=== PATIENT | female | born 1990 | race African-American/Black ===

== ENCOUNTER 2017-10-02 04:26 | Inpatient (IN) ==
[2017-10-02] MEDS ORDERED: LACTATED RINGERS 1,000 ML IV ONE (05:14)
[2017-10-02] MEDS ORDERED: FAMOTIDINE 20 MG/2 ML VIAL IV ONE (05:14)
[2017-10-02] MEDS ORDERED: ePHEDrine 50 MG/ML AMP IV PRN (05:14)
[2017-10-02] MEDS ORDERED: BUTORPHANOL 2 MG/ML VIAL IV PRN (05:14)
[2017-10-02] MEDS ORDERED: diphenhydrAMINE 50 MG/1 ML VIAL IV PRN (05:14)
[2017-10-02] MEDS ORDERED: PROMETHAZINE 25 MG/1 ML VIAL IM ONE (05:14)
[2017-10-02] MEDS ORDERED: CITRIC ACID/SODIUM CITRATE 30 ML UDCUP PO ONE (05:14)
[2017-10-02] MEDS ORDERED: ONDANSETRON 4 MG/2 ML VIAL IV PRN ×2 (05:14→15:55)
[2017-10-02] MEDS ORDERED: hydrOXYzine HCL 25 MG/1 ML VIAL IM PRN (05:14)
[2017-10-02] MEDS ORDERED: fentaNYL 2 MCG/ROPIV 0.2% EPID 150 ML EPIDURAL SCH (05:30)
[2017-10-02] MEDS ORDERED: LACTATED RINGERS 1,000 ML IV SCH (05:30)
[2017-10-02] MEDS ORDERED: OXYTOCIN/LR 20 UNIT/1,000 ML BAG IV SCH (05:30)
[2017-10-02 06:23] LABS: Basophils % 0.2 % (0.0-0.8); Eosinophils # 0.1 10*3/uL (0.0-0.87); Eosinophils % 1.2 % (0.00-10.9); Hematocrit 36.3 VOL% (35.7-47.0); Hemoglobin 12.5 GM/DL (12.0-16.0); Immature Granulocytes % 0.6 %; Immature Granulocytes Absolute 0.05 #; Lymphocytes # 2.2 10*3/uL (1.4-4.0); Lymphocytes % 26.8 % (21.3-54.2); Mean Corpuscular HGB Conc 34.4 GM/DL (32-36); Mean Corpuscular Hemoglobin 32 PG (27-34); Mean Corpuscular Volume 93.8 FL (87-102); Mean Platelet Volume 11.3 FL (9.6-12.0); Monocytes # 0.7 10*3/uL (0.11-0.8); Neutrophils # 5.1 10*3/uL (1.4-7.4); Neutrophils % 62.2 % (38.7-73.9); Platelet Count 305 T/CUMM (130-400); Red Blood Count 3.87 MC/CUMM (3.8-5.5); White Blood Count 8.3 T/CUMM (4-12)
[2017-10-02 06:52] LABS: Alanine Aminotransferase 25 U/L (13-56); Albumin 2.8 G/DL (3.4-5.0); Alkaline Phosphatase 151 U/L (45-117); Aspartate Amino Transferase 22 U/L (0-37); Bilirubin,Total < 0.39 MG/DL (0.2-1.0); Blood Urea Nitrogen 7 MG/DL (7-18); Calcium 9.1 MG/DL (8.5-10.1); Glucose 73 MG/DL (74-106); Osmolality,Calculated 273.5 MOS/KG (273-304); Potassium 3.7 MMOL/L (3.5-5.1); Sodium 139 MMOL/L (136-145); Total Protein 7.6 G/DL (6.4-8.3)
[2017-10-02 11:13] LABS: Apearance,Urine CLEAR (Clear); Bacteria,Urine Occasional /HPF (Few); Bilirubin,Urine Negative (Negative); Blood, Urine Negative (Negative); Glucose,Urine (UA) Negative (Negative); Ketones,Urine Negative (Negative); Mucus,Urine Occasional /LPF (Occasional); Nitrite,Urine Negative (Negative); Protein,Urine Negative; Urine Color Yellow (Yellow); Urine Specific Gravity 1.006 (1.001-1.035); Urine Urobilinogen < 2.0 EU/DL (0.2-1.0); WBC,Urine <1 /HPF (0-6)
[2017-10-02] MEDS ORDERED: LIDOCAINE 1% 50 ML VIAL ONE (15:41)
[2017-10-02] MEDS ORDERED: miSOPROStol 200 MCG TABLET ONE (15:41)
[2017-10-02] MEDS ORDERED: BISACODYL 10 MG SUPP RECTAL PRN (15:55)
[2017-10-02] MEDS ORDERED: BENZOCAINE 20%/MENTHOL 0.5% SPRAY 56 GM CAN TOP PRN (15:55)
[2017-10-02] MEDS ORDERED: DIPH/TET/ACEL PERT BOOSTER VACCINE 0.5 ML VIAL IM ONE (15:55)
[2017-10-02] MEDS ORDERED: WITCH HAZEL PADS 100/JAR TOP PRN (15:55)
[2017-10-02] MEDS ORDERED: MEASLES/MUMPS/RUBELLA VACCINE 0.5 ML VIAL SUBCUT ONE (15:55)
[2017-10-02] MEDS ORDERED: OXYTOCIN/LR 20 UNIT/1,000 ML BAG IV ONE (15:55)
[2017-10-02] MEDS ORDERED: LANOLIN 50% CREAM 0.3 OZ TUBE TOP PRN (15:55)
[2017-10-02] MEDS ORDERED: ACETAMINOPHEN 325 MG TABLET PO PRN (15:55)
[2017-10-02] MEDS ORDERED: oxyCODONE/ACETAMINOPHEN 5-325 MG TABLET PO PRN (15:55)
[2017-10-02] MEDS ORDERED: HYDROCORTISONE 2.5% RECTAL CREAM 30 GM TUBE TOP PRN (15:55)
[2017-10-02] MEDS ORDERED: RHO(D) IMMUNE GLOBULIN 300 MCG SYRINGE IM ONE (15:55)
[2017-10-02] MEDS: oxyCODONE/ACETAMINOPHEN 5-325 MG TABLET PO PRN (18:34)
[2017-10-02] MEDS: DOCUSATE SODIUM 100 MG CAPSULE PO SCH (20:20)
[2017-10-02] MEDS: IBUPROFEN 800 MG TABLET PO PRN (23:25)
[2017-10-03 05:58] LABS: Basophils % 0.2 % (0.0-0.8); Eosinophils # 0.1 10*3/uL (0.0-0.87); Hematocrit 34.7 VOL% (35.7-47.0); Hemoglobin 11.8 GM/DL (12.0-16.0); Immature Granulocytes % 0.6 %; Immature Granulocytes Absolute 0.07 #; Lymphocytes # 2.7 10*3/uL (1.4-4.0); Lymphocytes % 20.9 % (21.3-54.2); Mean Corpuscular Hemoglobin 32 PG (27-34); Mean Corpuscular Volume 93.8 FL (87-102); Mean Platelet Volume 10.1 FL (9.6-12.0); Monocytes # 0.9 10*3/uL (0.11-0.8); Monocytes % 6.7 % (1.7-12.7); Neutrophils # 8.9 10*3/uL (1.4-7.4); Neutrophils % 70.6 % (38.7-73.9); Platelet Count 249 T/CUMM (130-400); Red Cell Distribution Width 12.9 % (9.3-17.3); White Blood Count 12.7 T/CUMM (4-12)
[2017-10-03] MEDS: IBUPROFEN 800 MG TABLET PO PRN (07:55)
[2017-10-03] MEDS: DOCUSATE SODIUM 100 MG CAPSULE PO SCH ×2 (09:27→20:34)
[2017-10-03] MEDS: MULTIVITAMIN (PRENATAL) TABLET PO SCH (09:27)
[2017-10-03] MEDS: oxyCODONE/ACETAMINOPHEN 5-325 MG TABLET PO PRN ×2 (14:55→20:34)
[2017-10-04] MEDS: IBUPROFEN 800 MG TABLET PO PRN (01:44)
[2017-10-04] MEDS: DOCUSATE SODIUM 100 MG CAPSULE PO SCH (08:53)
[2017-10-04] MEDS: MULTIVITAMIN (PRENATAL) TABLET PO SCH (08:53)
[2017-10-04 13:16] VITALS: BP 111/65
== END 2017-10-04 11:35 | disposition home or self-care (01) | DRG 560 ==
LOC: N.LDOUT 04:26 → N.LD 04:30 → N.OB 18:29
PROVIDERS: ADMIT Obstetrics & Gynecology; ATTEND Obstetrics & Gynecology